=== PATIENT | female | born 1995 | race Caucasian/White ===

== ENCOUNTER 2021-09-01 15:28 | Outpatient (CLI) | payer OTHER ==
--- NOTE | 2021-09-02 15:50 | Ultrasound Report ---
PROCEDURE: OB F/U or Repeat INDICATIONS: SUPERVISION OF OUTSIDE/PRIOR DATING DATA: Last menstrual period (LMP): 11/20/2020. First dating scan (date and location): 05/20/[address] Merchant. Estimated date of delivery (clinical): 09/21/2021. TECHNIQUE: Real-time scanning was performed of the fetus, with image documentation and biometric measurements. Endovaginal scanning: Not performed. COMPARISON: Report of prior ultrasound dated 05/20/2021 from outside hospital. Images not available. FINDINGS: General: A single living intrauterine gestation is present. Presentation: Cephalic Placenta: Placental position is anterior, without previa. Amniotic fluid index: 10.2 cm, largest pocket 3.6 cm. heart rate: 144 beats per minute. Maternal cervical canal: Not visualized. biometrics: Not performed Estimated gestational age from initial scan: 37 weeks 1 day. Other: No echogenic focus in heart. No choroid plexus cyst is identified. There is an accessory lobe in the fundal aspect of the placenta. Cord insertion is not visualized. IMPRESSION: 1. A single living IUP is present. 2. No choroid plexus cyst is seen on the current examination. 3. No echogenic focus is seen in heart. 4. There is an accessory lobe of placenta and fundus. Placental cord insertion is not seen. 5. REDDY 10.2 cm with the largest pocket 3.6 cm. Reviewed by: Spencer Anthony MD on 09/02/2021 3:49 PM PDT Approved by: Spencer Anthony MD on 09/02/2021 3:49 PM PDT Station ID: [id number]
== END 2021-09-01 15:29 | disposition home or self-care (01) ==
LOC: DI 15:28
PROVIDERS: ATTEND Obstetrics & Gynecology
DX: O28.3 Abnormal ultrasonic finding on antenatal screening of mother (principal); Z3A.37 37 weeks gestation of pregnancy